=== PATIENT | male | born 1970 | race Caucasian/White ===

== ENCOUNTER 2019-05-24 11:14 | Emergency (ER) | payer BC ==
[~2019-05-24] VITALS: Ht 177.8 cm; Wt 90.9 kg
[2019-05-24 11:21] VITALS: Ht 177.8 cm; Wt 90.9 kg
[2019-05-24] MEDS ORDERED: VOLTAREN75 MG PO (11:50)
[2019-05-24] MEDS ORDERED: HYDROCODON-ACE1 EA10 PO (11:50)
[2019-05-24] MEDS ORDERED: KEFLEX500 MG PO (11:50)
[2019-05-24 12:32] VITALS: BP 106/68
== END 2019-05-24 12:32 | disposition home or self-care (01) ==
LOC: D.ER 11:14
DX: S69.91XA Unspecified injury of right wrist, hand and finger(s), initial encounter (principal); S61.200A Unspecified open wound of right index finger without damage to nail, initial encounter; W31.9XXA Contact with unspecified machinery, initial encounter